=== PATIENT | female | born 1980 | race African-American/Black ===

== ENCOUNTER 2016-08-24 14:48 | Emergency (ER) | payer OTHER ==
[~2016-08-24] VITALS: Ht 175.3 cm; Wt 91.5 kg
[~2016-08-24 14:48] MED LIST: COMBISP IH; DSSL PO; PREN-161 PO
[2016-08-24] MEDS ORDERED: CYCL10 PO (15:31)
[2016-08-24] MEDS ORDERED: PERCT10 PO (15:31)
[2016-08-24] MEDS ORDERED: SERT100T12 PO (15:31)
[2016-08-24 15:32] LABS: GLUCOSE,POINT OF CARE 97 MG/DL (70-110)
[2016-08-24] MEDS ORDERED: CYCLOBENZAPRINE HCL 10 MG TABLET PO ONE (16:15)
[2016-08-24] MEDS ORDERED: KETOROLAC TROMETHAMINE 60 MG/2 ML VIAL IM ONE (16:15)
[2016-08-24 17:39] VITALS: BP 111/73
== END 2016-08-24 17:46 | disposition home or self-care (01) ==
LOC: EMS 14:50
DX: M54.5 Low back pain (principal); G89.29 Other chronic pain; J45.909 Unspecified asthma, uncomplicated; F17.210 Nicotine dependence, cigarettes, uncomplicated; V43.92XA Unspecified car occupant injured in collision with other type car in traffic accident, initial encounter; Y93.89 Activity, other specified; Y92.89 Other specified places as the place of occurrence of the external cause; Y99.8 Other external cause status
CPT/HCPCS: 72040; 72100; 82962; 96372; 99284; 99406; J1885

== ENCOUNTER 2016-10-08 05:09 | Emergency (ER) | payer OTHER ==
[~2016-10-08] VITALS: Ht 175.3 cm; Wt 90.5 kg
[~2016-10-08 05:09] MED LIST changes: +CYCL10 PO; +PERCT10 PO; +SERT100T12 PO
[2016-10-08 07:56] VITALS: BP 129/73
== END 2016-10-08 08:02 | disposition home or self-care (01) ==
LOC: EMS 05:10
DX: H65.02 Acute serous otitis media, left ear (principal); J45.909 Unspecified asthma, uncomplicated; F17.210 Nicotine dependence, cigarettes, uncomplicated
CPT/HCPCS: 99283; 99406